=== PATIENT | female | born 1945 ===

== ENCOUNTER 2017-02-08 14:02 | Emergency (ER) | payer MEDICARE, BC ==
[2017-02-08 14:13] VITALS: RESP 18; TEMP 97.4
[2017-02-08] MEDS ORDERED: Tetanus/Diphtheria Toxoids 0.5 ml Syringe IM ONE ×2 (16:22→16:26)
--- NOTE | 2017-02-08 16:34 | RAD ---
PROCEDURE: Bilateral hand radiographs. HISTORY: fall COMPARISON: None. FINDINGS: BONES: Right Hand: Nondisplaced fracture involving the phalanx of the 4th digit. Nail bed injury Left Hand: Fracture of the base of the 5th metacarpal. JOINTS: Right Hand: Mild arthritis. Left Hand: Mild arthritis. SOFT TISSUES: Right Hand: Normal. Left Hand: Normal. OTHER FINDINGS: None. IMPRESSION: Nondisplaced fracture involving the distal phalanx of the 4th digit. Associated nail bed injury. Fracture of the base of the 5th metacarpal. Discussed with NGOZI Taylor at approximately 4:30 p.m. on 02/08/2017.
--- NOTE | 2017-02-08 17:05 | C.PDOC ---
History Of Present Illness 71-year-old female, presents to the emergency department with complaints of pain to hands. patient notes that she had mechanical fall and sustained injury to B/L hands and wrists. Denies numbness/weakness, nausea/vomiting, tingling, or any other associated symptoms. No other complaints at this time. Tetanus not up to date. Time Seen by Provider: 02/08/17 14:21 Chief Complaint (Nursing): Finger,Hand,&Wrist History Per: Patient History/Exam Limitations: no limitations Past Medical History Reviewed: Historical Data, Nursing Documentation, Vital Signs Vital Signs: Last Vital Signs Temp 97.4 F L 02/08/17 17:06 Pulse 64 02/08/17 17:06 Resp 18 02/08/17 17:06 BP 133/76 02/08/17 17:06 Pulse Ox 100 02/08/17 19:28 - Medical History PMH: HTN, Hypothyroidism Family History: States: Unknown Family Hx - Social History Hx Alcohol Use: No Hx Substance Use: No - Immunization History Hx Influenza Vaccination: Yes Hx Pneumococcal Vaccination: No Physical Exam - Physical Exam Appears: Non-toxic, No Acute Distress Skin: Warm, Dry, No Rash Extremity: Other (abrasions superficial, to B/L palms. Pts left fourth finger w / broken nail. No nail bed pain or injury. Pts distal phalang ecchymotic R hand echymosis mid palm. over base of the 4th 5th mcp. Tender w decreased ROM in 5th finger secondary to pain. wrist mildly tender) ED Course And Treatment O2 Sat by Pulse Oximetry: 100 - Other Rad XR B/L HANDS X-Ray: Viewed By Me, Read By Radiologist Interpretation: Accession No. : [id number]. Patient Name / ID : SERGEY GENNY / [id number]. Exam Date : 02/08/2017 15:42:08 ( Approved ). Study Comment : Sex / Age : F / 71Y. Creator : Enid Izaguirre MD. Dictator : Enid Izaguirre MD. Regulatory Compliance Officer : Outside Barrel Lathe Operator : Enid Izaguirre MD. Approver2 : Report Date : 16:33:07. My Comment : . PROCEDURE: Bilateral hand radiographs. HISTORY: fall. COMPARISON: None. FINDINGS: BONES: Right Hand: Nondisplaced fracture involving the phalanx of the 4th digit. Nail bed injury. Left Hand: Fracture of the base of the 5th metacarpal. JOINTS: Right Hand: Mild arthritis. Left Hand: Mild arthritis. SOFT TISSUES: Right Hand: Normal. Left Hand: Normal. OTHER FINDINGS: None. IMPRESSION: Nondisplaced fracture involving the distal phalanx of the 4th digit. Associated nail bed injury. Fracture of the base of the 5th metacarpal. Discussed with NGOZI Taylor at approximately 4:30 p.m. on 02/08/2017. Progress Note: Volar splint and finger splint applied by electronics technician. He will be discharged w/ outpatient f/u w/ ortho Disposition - Disposition Referrals: Vita Hebert MD [Provisional Staff] - Disposition: HOME/ ROUTINE Disposition Time: 17:02 Condition: STABLE Additional Instructions: Follow up with PMD and Hand specialist within 1-2 days. Return to ED if feel worse. Prescriptions: Hydrocodone/Acetaminophen [Acetaminophen-Hydrocodone Bitartrate 325 mg-5] 1 tab PO .Q4-6H #20 tab Ondansetron ODT [Zofran ODT] 4 mg PO .Q4-6H PRN #20 odt PRN Reason: Nausea/Vomiting Instructions: Hand Fracture (ED), Finger Fracture (ED) - Clinical Impression Clinical Impression: Finger fracture, left, Fracture of metacarpal base of right hand, closed - Scribe Statement The provider has reviewed the documentation as recorded by the Scribalyssa Alonso All medical record entries made by the Scribe were at my direction and personally dictated by me. I have reviewed the chart and agree that the record accurately reflects my personal performance of the history, physical exam, medical decision making, and the department course for this patient. I have also personally directed, reviewed, and agree with the discharge instructions and disposition.
[2017-02-08 17:06] VITALS: BP 133/76; PULSE 64
[2017-02-08 18:44] VITALS: O2SAT 100
== END 2017-02-08 17:18 | disposition home or self-care (01) ==
LOC: C.ER 14:02
DX: S62.664A Nondisplaced fracture of distal phalanx of right ring finger, initial encounter for closed fracture (principal); S62.317A Displaced fracture of base of fifth metacarpal bone, left hand, initial encounter for closed fracture; W18.39XA Other fall on same level, initial encounter; Y93.9 Activity, unspecified; Y92.9 Unspecified place or not applicable